=== PATIENT | female | born 1980 | race Caucasian/White ===

== ENCOUNTER 2021-07-07 14:33 | Outpatient (CLI) | payer BC ==
--- NOTE | 2021-07-07 17:05 | Ultrasound Report ---
PROCEDURE: Pelvic w/Transvaginal INDICATIONS: STYPICAL GLANDULAR CELLS TECHNIQUE: Real-time scanning was performed of the pelvic organs, with image documentation. Additional endovagi nal scanning was necessary due to incomplete visualization of the adnexal and endometrial structures by transabdominal scanning. COMPARISON: None. FINDINGS: Limited scanning through the kidneys shows no hydronephrosis. No pathologic free abdominal or pelvic fluid. Uterus: Uterus is anteverted measuring 9.2 x 3.3 x 4.6 cm. The endometrium measures 5.5 mm in combi murray thickness. Myometrium is homogeneous. There is an IUD within the endometrial cavity in the lower uterine segment. Prominent nabothian cysts are noted in cervix. Ovaries: Right ovary measures 2.0 1.7 x 2 0.6 mL with an volume of 6.6 cc. Left ovary measures 3.1 x 1.7 x 2.5 cm with an volume of 6.9 cc. There is a 1.9 x 1.4 x 1.6 cm paraovarian cyst in the left ad nexa. Less than 12 ovarian follicles in each ovary. Other: No free pelvic fluid. IMPRESSION: 1. IUD in the lower uterine segment. 2. Prominent nabothian cysts in cervix. 4. There is a 1.9 x 1.4 x 1.6 cm left paraovarian cyst. Reviewed by: Reggie Burton MD on 07/07/2021 5:04 PM PDT Approved by: Reggie Burton MD on 07/07/2021 5:04 PM PDT Station ID: [id number]
== END 2021-07-07 14:34 | disposition home or self-care (01) ==
LOC: DI 14:33
PROVIDERS: ATTEND Obstetrics & Gynecology
DX: N83.202 Unspecified ovarian cyst, left side (principal); N88.8 Other specified noninflammatory disorders of cervix uteri